=== PATIENT | female | born 1975 | race Caucasian/White ===

== ENCOUNTER 2019-03-25 22:13 | Emergency (ER) | payer MEDICAID, OTHER ==
[~2019-03-25] VITALS: Ht 147.3 cm; Wt 59.9 kg
[2019-03-25 22:17] VITALS: BP 120/74
--- NOTE | 2019-03-25 22:22 | NUR ---
PT AMBULATED TO LOBBY WITH VSS.
--- NOTE | 2019-03-25 23:45 | NUR ---
COVERING PRIMARY RN FOR LUNCH. PT TO ED FOR C/O RT #3 TOE PAIN. DENIES INJURY/TRAUMA. +CMS. +ROM. MILD REDNESS NOTED TO #3 TOE. PT PLACED INTO BED FOR MD VARGAS.
--- NOTE | 2019-03-26 00:10 | NUR ---
REPORT TO RICARDO ZAVALA. NO CHANGE IN PT CONDITION.
[2019-03-26 02:10] VITALS: BP 120/74
--- NOTE | 2019-03-26 02:10 | NUR ---
PT DISCHARGED WITH PAPERWORK. RX MALIA BALDERRAMA. EDUCATED PT REGARDING MEDICATIONS AND S/E. EDUCATED PT REGARDING D/C DIAGNOSIS. PT VERBALIZED UNDERSTANDING OF TEACHING. TOLD PT TO FOLLOW UP WITH PCP AND WHEN TO RETURN TO ED. PT VSS. ALL QUESTIONS ANSWERED.
== END 2019-03-26 02:10 | disposition home or self-care (01) ==
LOC: MED 22:13
DX: L03.031 Cellulitis of right toe (principal); Z98.890 Other specified postprocedural states
CPT/HCPCS: 73660; 99283